=== PATIENT | female | born 1965 | race Caucasian/White ===

== ENCOUNTER 2019-06-11 08:42 | Day surgery (SDC) | payer BC, SELFPAY ==
[2019-06-10 11:17] VITALS: BMI 33.3
[2019-06-11 09:09] VITALS: BP 113/72; PULSE 90; RESP 18; TEMP 36.6; O2SAT 96
[2019-06-11] MEDS: sodium chloride 0.9% 1,000 ML 30 ML (09:11)
--- NOTE | 2019-06-11 09:59 | ANES.PREANE2 ---
Pre-Anesthetic Assessment Pre-Anesthetic Assessment: Height/Weight: Height 1.65 m Weight 90.718 kg Temp Pulse Resp BP Pulse Ox 97.9 F 90 18 113/72 96 06/11/19 09:09 06/11/19 09:09 06/11/19 09:09 06/11/19 09:09 06/11/19 09:09 Preop Diagnosis: Abd pain Proposed Procedure: Operation Date: 06/11/19 10:30 Proposed Procedures p EGD 82943 K21.9(Not Applicable) - Darshan Cardoso MD Was Beta Shivam taken within 24 hours: N/A Last intake: Intake Last Liquid Date 06/10/19 Last Liquid Time 22:00 Last Solid Date 06/10/19 Last Solid Time 20:00 Last Intake: 20:00 Social: Social History: No alcohol and No tobacco Exam: Pre-Anes Outpt Exam: alert, oriented x 3, clear to auscultation bilaterally and regular rate & rhythm Airway: Submandibular: WNL Cervical ROM: WNL MP: 1 Pulmonary: Pulmonary: None reported CV/HEM: CV/HEM: None reported : : None reported Hepatic: Hepatic: None reported GI: GI: GERD Metabolic: Metabolic: None reported Musc/skel: Musc/skel: Lower Back Pain and OA/DJD Neuropsych: Neuropsych: None reported Anesthetic Plan: ASA status: 2 Anesthesia: Anesthesia Evaluation and MAC Risk of > 500 ml blood loss (7ml/kg in children): No PFSH Anesthesia PFSH: Social History Smoking and tobacco status: never smoked Alcohol intake: never Lives independently: Yes Household members: spouse and family Marital status: Current occupational status: employed History of recent travel: No Data Anesthesia Cardiac Studies: No Data to Display
[2019-06-11 10:57] VITALS: BP 133/77; PULSE 89; RESP 16; TEMP 36.5; O2SAT 94
[2019-06-11 11:04] VITALS: BP 121/72; PULSE 85; RESP 18; O2SAT 92
--- NOTE | 2019-06-11 11:42 | ANE.PACU2 ---
 Inpatient post-anesthesia follow up: Airway intact: Yes Vital signs: Temperature 97.7 F Pulse Rate 85 Respiratory Rate 18 Blood Pressure 121/72 Pulse Oximetry 92 Oxygen Delivery Me thod Room Air Oxygen Flow Rate 3 Fraction of Inspir ed Oxygen Hydration adequate: Yes Nausea and vomiting: No Pain level: 1 Mental status: Baseline
--- NOTE | 2019-06-11 14:28 | PM.HPUD ---
H&P update H&P Update: DATE OF SURGERY/PROCEDURE: 06/11/19 DATE H&P PERFORMED: 05/25/19 H&P UPDATE INFORMATION: H&P completed within last 30 days and No changes to prior documentation PREOP DIAGNOSIS: Abd pain PLANNED PROCEDURE: Operation Date: 06/11/19 10:30 Proposed Procedures p EGD 78673 K21.9(Not Applicable) - Darshan Cardoso MD Full H&P Perinent History: Medical/Surgical History: Medical History (Updated 05/26/19 @ 09:39 by Darshan Cardoso MD) Constipation (Chronic) Diverticulosis (Acute) Fibromyalgia (Acute) Gastritis (Chronic) Idiopathic peripheral neuropathy (Acute) Internal hemorrhoids (Acute) Stress incontinence (Acute) Vertiginous migraine (Acute) Vitamin D deficiency (Acute) Family History: Family History (Updated 05/25/19 @ 13:23 by Emily Lowry LPN) Mother Cancer Pagets disease, breast Son Bleeding disorder Denies family history of Anesthesia complication Social History: Social History Smoking and tobacco status: never smoked Alcohol intake: never Lives independently: Yes Household members: spouse and family Marital status: Current occupational status: employed History of recent travel: No
== END 2019-06-11 11:17 | disposition home or self-care (01) ==
PROVIDERS: Family Provider Physician Assistant Medical; PCP Physician Assistant Medical; Visit Provider Surgery
PROC: 0DJ08ZZ Inspection of Upper Intestinal Tract, Via Natural or Artificial Opening Endoscopic (ICD-10-PCS; CPT 43235; principal; 2019-06-11 10:30)
DX: R10.9 Unspecified abdominal pain (principal); M79.7 Fibromyalgia; K21.9 Gastro-esophageal reflux disease without esophagitis; K29.70 Gastritis, unspecified, without bleeding; M19.90 Unspecified osteoarthritis, unspecified site; K59.00 Constipation, unspecified
CPT/HCPCS: 12345; 43239; 88305; J2704; J7030

== ENCOUNTER → 2019-10-05 13:11 | Outpatient (BNVA) | payer BC, SELFPAY | PROVIDERS: Family Provider Physician Assistant Medical; PCP Physician Assistant Medical; Referring Provider Physician Assistant Medical; Visit Provider Podiatrist Foot & Ankle Surgery | DX: M79.671 Pain in right foot (principal); M79.672 Pain in left foot | CPT/HCPCS: 73630 ==

== ENCOUNTER 2019-11-11 07:02 | Outpatient (CLI) | payer BC, SELFPAY ==
--- NOTE | 2019-11-11 07:12 | MM_ITS ---
WS: [id number] BILATERAL DIGITAL SCREENING MAMMOGRAPHY WITH CAD CLINICAL INFORMATION: SCREENING HISTORY: Screening mammogram. No current complaints. COMPARISON: September 17, 2018 TECHNIQUE: Bilateral CC and MLO views. FINDINGS: Scattered fibroglandular densities bilaterally. No suspicious focal mass, asymmetry, calcifications, or architectural distortion. No evidence of malignancy. MM/[place] [id number] IMPRESSION: BI-RADS: 1-Negative FOLLOW UP: 1 Year Follow-up Recommend return to annual screening mammography.
== END 2019-11-11 07:03 | disposition home or self-care (01) ==
LOC: RADSHAW 07:04
PROVIDERS: PCP Physician Assistant Medical; Visit Provider Physician Assistant Medical
DX: Z12.31 Encounter for screening mammogram for malignant neoplasm of breast (principal)
CPT/HCPCS: 77067

== ENCOUNTER → 2020-10-20 08:48 | Outpatient (BNVA) | payer OTHER, SELFPAY | PROVIDERS: PCP Physician Assistant Medical; Visit Provider Surgery | DX: K92.1 Melena (principal); Z20.822 Contact with and (suspected) exposure to COVID-19 | CPT/HCPCS: 87635 ==

== ENCOUNTER 2020-10-27 10:58 | Day surgery (SDC) | payer OTHER, SELFPAY ==
--- NOTE | 2020-10-27 11:03 | P.ANESASSM_ITS ---
Pre-Anesthetic Assessment Pre-Anesthetic Assessment: Height/Weight: Height 1.63 m Weight 99.79 kg Preop Diagnosis: Abd pain Proposed Procedure: Operation Date: 10/27/20 13:00 Proposed Procedures p Colonoscopy 27902 K92.1(Not Applicable) - Darshan Cardoso MD Familial anesthetic complications: None Last intake: > 8 hrs Social: Social History: No alcohol and No tobacco Exam: Pre-Anes Outpt Exam: alert, oriented x 3, clear to auscultation bilaterally and regular rate & rhythm Airway: Cervical ROM: WNL MP: 2 Dentition: Full Musc/skel: Comments: fibroids Neuropsych: Neuropsych: Neuropathy Anesthetic Plan: ASA status: 2 Anesthesia: MAC Risk of > 500 ml blood loss (7ml/kg in children): No PFSH Anesthesia PFSH: Medical History Constipation Diverticulosis Fibromyalgia Gastritis Idiopathic peripheral neuropathy Internal hemorrhoids No pertinent past medical history neghx: dm,htn,thyroid,dvt/pe Stress incontinence Vertiginous migraine Vitamin D deficiency Surgical History H/O carpal tunnel repair (~01/2020) Right H/O esophagogastroduodenoscopy 06/11/2019: gastritis and bile reflux History of appendectomy (2005) History of cholecystectomy (11/26/18) History of colonoscopy (10/11/15) Repeat in 10 years 10/2015 History of foot surgery (2016) Left History of hysterectomy (1996) LAVH- ovaries spared; performed in [place] for prolapse and pain History of lumbar fusion (2017) Family History Mother Breast cancer dx'd at age 6262 years old--Paget's disease Son Bleeding disorder Denies family history of Colon cancer Ovarian cancer Dementia Heart disease Hyperlipidemia Anesthesia complication Family history of thyroid problem Hypertension Uterine cancer Stroke Social History History of recent travel: No Additional social history: - Tobacco use: Denies Alcohol use: Denies Drug use: Denies Data Anesthesia Cardiac Studies: No Data to Display
[2020-10-27 11:32] VITALS: BP 107/80; PULSE 85; RESP 18; TEMP 36.5; O2SAT 95
[2020-10-27] MEDS: sodium chloride 0.9% 1,000 ML 30 ML IV (11:42)
--- NOTE | 2020-10-27 14:13 | W.PM.OPSUD ---
Surgery/Procedure H&P Update DATE OF PROCEDURE: October 27, 2020 DATE H&P PERFORMED: 09/30/20 H&P UPDATE INFORMATION: I have reviewed H&P completed within last 30 days, I have examined patient prior to procedure and No changes to prior documentation PREOP DIAGNOSIS: diagnostic PLANNED PROCEDURE: Operation Date: 10/27/20 13:00 Proposed Procedures p Colonoscopy 31949 K92.1(Not Applicable) - Darshan Cardoso MD
--- NOTE | 2020-10-27 14:47 | ANE.PACU2 ---
Inpatient post-anesthesia follow up: Airway intact: Yes Vital signs: Temperature 97.7 F Pulse Rate 85 Respiratory Rate 18 Blood Pressure 107/80 Pulse Oximetry 95 Oxygen Delivery Me thod Room Air Oxygen Flow Rate Fraction of Inspir ed Oxygen Hydration adequate: Yes Nausea and vomiting: No Pain level: 2 Mental status: Baseline
[2020-10-27 14:55] VITALS: BP 103/66; PULSE 83; RESP 16; TEMP 36.1; O2SAT 99
[2020-10-27 15:10] VITALS: BP 103/80; PULSE 76; RESP 18; TEMP 36.6; O2SAT 100
== END 2020-10-27 15:30 | disposition home or self-care (01) ==
PROVIDERS: PCP Physician Assistant Medical; Visit Provider Surgery
PROC: 0DJD8ZZ Inspection of Lower Intestinal Tract, Via Natural or Artificial Opening Endoscopic (ICD-10-PCS; CPT 45378; principal; 2020-10-27 13:00)
DX: K92.1 Melena (principal); K64.8 Other hemorrhoids; M79.7 Fibromyalgia; Z80.3 Family history of malignant neoplasm of breast
CPT/HCPCS: 45380; 88305; 96360; 96361; J2704; J7030

== ENCOUNTER 2020-11-11 07:59 | Outpatient (CLI) | payer OTHER, SELFPAY ==
--- NOTE | 2020-11-11 08:06 | MM_ITS ---
WS: [id number] BILATERAL DIGITAL SCREENING MAMMOGRAPHY WITH CAD CLINICAL INFORMATION: SCREENING HISTORY: Screening mammogram. No current complaints. COMPARISON: November 11, 2019 TECHNIQUE: Bilateral CC and MLO views. FINDINGS: Scattered fibroglandular densities bilaterally. 5 mm asymmetric density mid depth left breast best se en on the MLO view. This appears more prominent compared to previous. Recommend left diagnostic mammo graphy and ultrasound if persistent for further evaluation. Right breast is unremarkable and unchanged. MM/[place] [id number] IMPRESSION: BI-RADS: 0-Incomplete: Need additional imaging evaluation FOLLOW UP: Need Additional Imaging Recommend left diagnostic mammography and ultrasound if persistent for further evaluation.
== END 2020-11-11 08:00 | disposition home or self-care (01) ==
LOC: RADSHAW 08:05
PROVIDERS: PCP Physician Assistant Medical; Visit Provider Physician Assistant Medical
DX: Z12.31 Encounter for screening mammogram for malignant neoplasm of breast (principal)
CPT/HCPCS: 77067

== ENCOUNTER 2020-11-25 09:03 | Outpatient (CLI) | payer OTHER, SELFPAY ==
--- NOTE | 2020-11-25 09:08 | MM_ITS ---
WS: [id number] Right breast diagnostic mammogram, 11/25/2020 Clinical Data: ABNORMALITY OF BREAST ON SCREENING MAMMOGRAM Comparison: 11/11/2020, 11/11/2019, 09/17/2018, 09/16/2017, 08/07/2016, 08/02/2015, 09/07/2014, 08/31/2013, 2012, 08/29/2012, 06/08/2011, 08/02/2009. Findings: The asymmetry in the left breast is seen on the MLO, CC and ML views. The density measures 8 cm poste rior to the nipple. Review of the prior examinations shows that this density has changed little. Ther e are no spiculated masses or calcifications associated with this density. MM/[place] [id number] Impression: 1. Asymmetric left breast tissue. 2. Recommend left breast ultrasound. BIRADS: 2-Benign FOLLOW UP: See Report The CAD [employer] was used.
--- NOTE | 2020-11-25 09:08 | US_ITS ---
WS: [id number] Left breast ultrasound, 11/25/2020 Clinical Data: ABNORMALITY OF BREAST ON SCREENING MAMMOGRAM Comparison: Left breast ultrasound, 03/18/2013. Findings: The left breast tissue with scant posterior to the nipple and also the upper inner quadrant. Only nor mal breast tissue could be seen. There are no cysts or masses. US/US breast LT limited* [id number] Impression: Normal left breast ultrasound. Return to annual screening mammograms. BIRADS: 2-Benign FOLLOW UP: 1 Year Follow-up
== END 2020-11-25 09:04 | disposition home or self-care (01) ==
LOC: RADSHAW 09:05
PROVIDERS: PCP Physician Assistant Medical; Visit Provider Physician Assistant Medical
DX: R92.8 Other abnormal and inconclusive findings on diagnostic imaging of breast (principal); N64.89 Other specified disorders of breast
CPT/HCPCS: 76642; 77065

== ENCOUNTER → 2020-12-27 08:32 | Outpatient (BNVA) | payer OTHER, SELFPAY | PROVIDERS: PCP Physician Assistant Medical; Visit Provider Internal Medicine Rheumatology | DX: M79.7 Fibromyalgia; R76.8 Other specified abnormal immunological findings in serum; Z79.899 Other long term (current) drug therapy; M15.9 Polyosteoarthritis, unspecified | CPT/HCPCS: 99204 ==

== ENCOUNTER 2020-12-27 10:07 | Outpatient (CLI) | payer OTHER, SELFPAY ==
[2020-12-27 11:05] LABS: Alanine Aminotransferase 22 U/L (0-33); Albumin Level 4.4 g/dL (3.5-5.2); Alkaline Phosphatase 92 IU/L (35-105); Aspartate Amino Transferase 25 U/L (0-32); Globulin 2.1 g/dL (1.3-4.6); Glomerular Filtration Rate 103.8 mL/min (90-130); Total Bilirubin 0.2 mg/dL (0.15-1.2); Total Protein 6.5 g/dL (6.6-8.7)
[2020-12-27 11:20] LABS: Basophils # 0.1 10^3/uL (0.0-0.1); Basophils % 0.7 %; Eosinophils # 0.2 10^3/uL (0.0-0.8); Eosinophils % 2.7 %; Hematocrit 42.4 % (37.0-47.0); Hemoglobin 13.9 g/dL (11.5-15.3); Lymphocytes # 2.3 10^3/uL (0.8-4.8); Lymphocytes % 25.6 %; Mean Corpuscular HGB Conc 32.8 g/dL (30.0-36.0); Mean Corpuscular Hemoglobin 29.4 pg (28.0-34.0); Mean Corpuscular Volume 89.6 fl (81-99); Monocytes # 0.7 10^3/uL (0.2-0.9); Monocytes % 7.6 %; Neutrophils # 5.65 10^3/uL (1.8-7.7); Neutrophils % 63.1 %; Nucleated Red Blood Cells % 0 %; Platelet Count 224 10^3/cmm (130-400); Red Blood Count 4.73 10^6/uL (4.1-5.3); Red Cell Distribution Width 13.4 % (12.1-15.1)
[2020-12-27 11:32] LABS: Erythrocyte Sedimentation Rate 16 mm/hr (0-15)
[2020-12-27 13:23] LABS: 25 Hydroxy Vitamin D 37 ng/mL (30-100)
[2020-12-28 13:02] LABS: COMPLEMENT COMPONENT C3C 126 mg/dL (83-193); COMPLEMENT COMPONENT C4C 36 mg/dL (15-57)
[2020-12-28 14:13] LABS: Cyclic Citrullinated Peptide <16 UNITS
[2020-12-28 15:36] LABS: COMPLEMENT, TOTAL (CH50) >60 U/mL (31-60)
[2020-12-28 17:23] LABS: CENTROMERE B ANTIBODY <1.0 NEG AI (<1.0 NEG); JO-1 ANTIBODY <1.0 NEG AI (<1.0 NEG); RNP ANTIBODY <1.0 NEG AI (<1.0 NEG); SCL-70 ANTIBODY <1.0 NEG AI (<1.0 NEG); SJOGREN'S ANTIBODY (SS-A) <1.0 NEG AI (<1.0 NEG); SM ANTIBODY <1.0 NEG AI (<1.0 NEG); SS-B <1.0 NEG AI (<1.0 NEG); THYROID PEROXIDASE ANTIBODIES <1 IU/mL (<9); Thyroglobulin AB <1 IU/mL (< or = 1)
[2020-12-29 11:16] LABS: ANA PATTERN Nuclear, Homogeneous; ANA SCREEN, IFA POSITIVE (NEGATIVE)
[2021-01-05 12:38] LABS: DNA AB (DS) CRITHIDIA,IFA NEGATIVE (NEGATIVE)
== END 2020-12-27 10:08 | disposition home or self-care (01) ==
PROVIDERS: PCP Physician Assistant Medical; Visit Provider Internal Medicine Rheumatology
DX: M19.90 Unspecified osteoarthritis, unspecified site (principal); M25.50 Pain in unspecified joint; Z79.899 Other long term (current) drug therapy; R76.8 Other specified abnormal immunological findings in serum
CPT/HCPCS: 36415; 80076; 82306; 82565; 85025; 85651; 86160; 86162; 86235; 86255; 86376; 86431; 86800

== ENCOUNTER → 2021-01-30 10:46 | Outpatient (BNVA) | payer OTHER, SELFPAY | PROVIDERS: PCP Physician Assistant Medical; Visit Provider Obstetrics & Gynecology | DX: R31.9 Hematuria, unspecified (principal); R35.0 Frequency of micturition | CPT/HCPCS: 81000; 87077; 87086; 87184 ==

== ENCOUNTER → 2021-06-27 12:52 | Outpatient (BNVA) | payer OTHER, SELFPAY | PROVIDERS: PCP Physician Assistant Medical; Visit Provider Podiatrist Foot & Ankle Surgery | DX: M79.671 Pain in right foot (principal); M79.672 Pain in left foot; M77.8 Other enthesopathies, not elsewhere classified | CPT/HCPCS: 73630 ==

== ENCOUNTER 2021-07-10 10:25 | Outpatient (CLI) | payer OTHER, SELFPAY ==
--- NOTE | 2021-07-10 10:42 | XRR_ITS ---
PROCEDURE INFORMATION: Exam: XR Lumbosacral Spine Exam date and time: 07/10/2021 10:42 AM Age: 56 years old Clinical indication: Low back pain. Osteoarthritis. TECHNIQUE: Imaging protocol: XR of the lumbosacral spine. Views: 2 or 3 views. COMPARISON: [place] [id number] 11/25/2020 9:16 AM FINDINGS: Bones/joints: There are 5 lumbar type vertebral bodies. Grade 1 anterolisthesis of L3 likely related to facet joint degeneration. Mild to moderate degenerative disc disease is seen in the visualized thoracolumbar spine. No acute appearing fracture is identified. Mild leftward curvature of the lumbar spine. The sacroiliac joints are grossly symmetric. The sacrum is partially obscured by overlying bowel gas/stool. Soft tissues: No gross soft tissue swelling. XR/XR lumbar spine 2-3V* [id number] IMPRESSION: 1. No acute appearing fracture is identified. 2. Grade 1 anterolisthesis of L3 likely related to facet joint degeneration. 3. Mild to moderate degenerative disc disease is seen in the visualized thoracolumbar spine. 4. Consider MRI to further assess if clinically warranted.
--- NOTE | 2021-07-10 10:42 | XRR_ITS ---
PROCEDURE INFORMATION: Exam: XR Chest Exam date and time: 07/10/2021 10:42 AM Age: 56 years old Clinical indication: Pain. Osteoarthritis. Joint pain. TECHNIQUE: Imaging protocol: XR of the chest. Views: 2 views. COMPARISON: MRI Cervical Spine w/wo [id number] 03/20/2019 3:06 PM FINDINGS: Lungs: Subsegmental atelectasis or scarring at the left base. No juanjose consolidation. Pleural spaces: No pleural effusion. No pneumothorax. Heart/Mediastinum: The cardiac silhouette is unremarkable. No gross evidence of pneumomediastinum. Diaphragm: Mild elevation of the right hemidiaphragm. Bones/joints: No gross fracture. XR/XR chest 2V* [id number] IMPRESSION: No acute cardiopulmonary abnormality identified.
== END 2021-07-10 10:26 | disposition home or self-care (01) ==
LOC: LAB 10:30
PROVIDERS: PCP Nurse Practitioner Family; Visit Provider Internal Medicine Rheumatology
DX: M51.35 Other intervertebral disc degeneration, thoracolumbar region (principal)
CPT/HCPCS: 71046; 72100; 80076; 82565; 85025; 86140

== ENCOUNTER 2021-10-16 08:09 | Emergency (ER) | payer OTHER, SELFPAY ==
[2021-10-16 08:23] VITALS: BP 123/81; PULSE 101; RESP 18; TEMP 36.3; O2SAT 96; BMI 38.2
--- NOTE | 2021-10-16 08:37 | CT_ITS ---
WS: [id number] CT ABDOMEN AND PELVIS NONCONTRAST HISTORY: Abdominal pain, LEFT lower quadrant pain for one day with nausea and diarrhea. TECHNIQUE: Imaging performed through the abdomen and pelvis. Coronal and sagittal reformats are submi tted. All CT scans at [facility] use at least one of these dose optimization techniques: auto mated exposure control; mA and/or kV adjustment per patient size (includes targeted exams where dose is matched to clinical indication); or iterative reconstruction. DLP: 1735.77 mGy.cm COMPARISON: None available. Lower thorax: Micronodules at the lung bases some of these are calcified and some are noncalcified. T hese nodules are less than 3 mm in diameter. Heart size is normal. No hiatal hernia. Liver: Normal size liver with low attenuation from hepatic steatosis. 6 mm low-attenuation nodule in the LEFT lobe. No bile duct dilatation. Gallbladder: Prior cholecystectomy. Pancreas: Normal size and attenuation. Normal pancreatic duct. No pancreatitis or mass. Spleen: Normal. Adrenal glands: Normal RIGHT adrenal gland. Well-circumscribed low-attenuation adenoma measuring 2.2 x 1.4 cm LEFT adrenal gland. Right kidney: Normal size kidney. Low-attenuation nodule in the lower pole measures 11 mm. No obstruc tion. Left kidney: Normal size kidney. There is a large low-attenuation mass with a few scattered foci of c alcification in the wall of the lower pole measuring 66 x 54 mm. No obstruction. Aorta: Normal abdominal aorta, no aneurysm or atherosclerosis. No free fluid, intraperitoneal air or significant lymphadenopathy. GI tract: Nondistended stomach. No small bowel obstruction. Mild diffuse fecal retention and constipa tion. The appendix has been removed. Beginning within the distal colon through the sigmoid there is m oderate pericolonic inflammation and numerous diverticula consistent with diverticulitis. No abscess. Abdominal wall: Negative. No hernia. Pelvis: Prior hysterectomy. No free fluid or mass. Nondistended urinary bladder. Osseous structures: Thoracolumbar scoliosis. L3 anterolisthesis by 4 mm. Moderate facet joint arthrit is throughout the mid and lower lumbar spine. CT/CT abdomen pelvis wo con [id number] IMPRESSION: 1. Mild to moderate acute distal descending and sigmoid diverticulitis. No abs cess or free fluid. 2. Prior appendectomy and cholecystectomy. 3. Hepatic steatosis. 4. Indeterminate bilateral cystic masses within each kidney. These can be furt her evaluated by follow-up, nonemergent renal ultrasound. 5. Benign LEFT adrenal adenoma.
[2021-10-16 08:47] VITALS: RESP 18; O2SAT 96
[2021-10-16] MEDS: morphine 4 mg/mL SDV 1 mL IVP (08:47)
[2021-10-16] MEDS: ondansetron 2 mg/ML SDV 2 mL 4 MG IVP (08:47)
[2021-10-16] MEDS: sodium chloride 0.9% 1,000 ML 999 ML IV (08:48)
[2021-10-16 08:53] LABS: Basophils # 0.1 10^3/uL (0.0-0.1); Basophils % 0.7 %; Eosinophils # 0.2 10^3/uL (0.0-0.8); Eosinophils % 1.7 %; Hemoglobin 14.8 g/dL (11.5-15.3); Lymphocytes # 1.6 10^3/uL (0.8-4.8); Lymphocytes % 13.8 %; Mean Corpuscular HGB Conc 34.4 g/dL (30.0-36.0); Mean Corpuscular Hemoglobin 29.8 pg (28.0-34.0); Mean Corpuscular Volume 86.7 fl (81-99); Mean Platelet Volume 8.5 fL (7.4-10.4); Monocytes # 0.9 10^3/uL (0.2-0.9); Monocytes % 7.7 %; Neutrophils # 8.72 10^3/uL (1.8-7.7); Neutrophils % 75.8 %; Nucleated Red Blood Cells % 0 %; Platelet Count 219 10^3/cmm (130-400); Red Blood Count 4.96 10^6/uL (4.1-5.3); Red Cell Distribution Width 13.7 % (12.1-15.1); White Blood Count 11.5 10^3/uL (4.0-10.0)
[2021-10-16 09:06] LABS: Add Urine Microscopic? YES; Bilirubin Urine Neg (Negative); Blood Urine 2+ (Negative); Glucose Urine UA Norm (Normal); Ketones Urine 2+ (Negative); Leukocyte Esterase Urine Negative (Negative); Nitrate Urine Negative (Negative); Protein Urine Neg (Negative); RBC Urine 0-4 /hpf (0-2); Urine Appearance Clear (CLEAR); Urine Color Yellow (Yellow); Urobilinogen Urine Norm (Negative); pH Urine 5 (5-7)
[2021-10-16 09:07] LABS: Add Urine Culture? No
[2021-10-16 09:11] LABS: Alanine Aminotransferase 19 U/L (0-33); Albumin Level 4.4 g/dL (3.5-5.2); Alkaline Phosphatase 89 IU/L (35-105); Anion Gap 16.3 (5-19); Aspartate Amino Transferase 24 U/L (0-32); Blood Urea Nitrogen 14 mg/dL (6-20); Calcium 8.9 mg/dL (8.5-10.5); Carbon Dioxide 22 mmol/L (22-29); Chloride 103 mmol/L (98-107); Glomerular Filtration Rate 103.4 mL/min (90-130); Glucose 84 mg/dL (65-115); Lipase 22 U/L (13-60); Osmolality Calculated 284 mOsm/kg (285-295); Potassium 4.3 mmol/L (3.5-5.1); Sodium 137 mmol/L (136-145); Total Bilirubin 0.7 mg/dL (0.15-1.2); Total Protein 7.4 g/dL (6.6-8.7)
[2021-10-16 09:56] VITALS: BP 106/70; PULSE 96; RESP 18; O2SAT 96
--- NOTE | 2021-10-16 14:47 | W.ED.ABDPA2 ---
HPI - Abdominal Pain General: Chief Complaint: Abdominal Pain Stated Complaint: Lower Right side abd Pain Time Seen by Provider: 10/16/21 08:10 Source: patient Mode of arrival: ambulatory Limitations: no limitations History of Present Illness: 56-year-old female who presents emergency room complaining left lower quadrant abdominal pain. Multiple loose stools with no hematochezia. Has difficult time with urination as well but is able to completely empty the bladder has been very nauseous but no vomiting. Low-grade subjective fever. Has previous had a colonoscopy and had polyps removed several years ago. No history of diverticulitis. MD elicited complaint: abdominal pain Onset (ago): day(s) (1) Pain Consistency: intermittent Location: LLQ Severity: moderate Quality: cramping Radiation: none Migration to: no migration Exacerbating factors: nothing Relieving factors: nothing Associated Symptoms: Reports bloating, change in bowel habits, change in stool character, GI cramping, diarrhea, nausea and poor appetite; Denies anorexia, belching, chills, coffee ground emesis, constipation, dyspepsia, dysuria, excessive flatus, fever(s), heartburn, hematochezia, hematuria, hematemesis, fecal incontinence, loose stools, melena, syncope and vomiting Review of Systems Const: Denies: fever(s) or chills ENMT: Denies: throat pain, ear or mastoid pain, nasal discharge or nasal congestion Card: Denies: chest pain, palpitations or syncope Resp: Denies: dyspnea, productive cough or non-productive cough GI: Reports: abdominal pain, nausea, diarrhea, bloating, GI cramping, change in bowel habits and change in stool character; Denies: vomiting, hematemesis, coffee ground emesis, heartburn, constipation, belching, excessive flatus, fecal incontinence, hematochezia or melena : Denies: flank pain, difficulty voiding, dysuria, urinary frequency, urinary urgency or hematuria Skin/Breast: Denies: rash or pruritus PFSH ED PFSH: Medical History Constipation Diverticulosis Fibromyalgia Gastritis Idiopathic peripheral neuropathy Inflammatory arthritis Internal hemorrhoids Osteoarthritis, generalized Positive JOSI (antinuclear antibody) Stress incontinence Vertiginous migraine Vitamin D deficiency Surgical History H/O carpal tunnel repair (~01/2020) Right H/O esophagogastroduodenoscopy 06/11/2019: gastritis and bile reflux History of appendectomy (2005) History of cholecystectomy (11/26/18) History of colonoscopy (10/27/20) 10/2015 History of foot surgery (2016) Left History of hysterectomy (1996) LAVH- ovaries spared; performed in [place] for prolapse and pain History of lumbar fusion (2017) Family History Mother Breast cancer dx'd at age 6262 years old--Paget's disease Son Bleeding disorder Denies family history of Rheumatoid arthritis Colon cancer Ovarian cancer Lupus Psoriatic arthritis Dementia Heart disease Hyperlipidemia Anesthesia complication Family history of thyroid problem Hypertension Uterine cancer Stroke Social History Smoking and tobacco status: never smoked History of recent travel: No Additional social history: - Tobacco use: Denies Alcohol use: Denies Drug use: Denies Physical Exam Const: COMMON NORMALS: no acute distress GENERAL APPEARANCE: cooperative and comfortable ORIENTATION/CONSCIOUSNESS: Yes awake, Yes oriented to person, Yes oriented to place and Yes oriented to time HENMT: COMMON NORMALS: normocephalic, atraumatic and hearing grossly normal bilaterally HEAD & SCALP: normocephalic and atraumatic Neck/C-Spine: COMMON NORMALS: no JVD Resp: COMMON NORMALS: normal respiratory effort, No retractions, No use of accessory muscles and clear to auscultation bilaterally AUSCULTATION: clear to auscultation bilaterally Cardio: COMMON NORMALS: no JVD, regular rate, regular rhythm and No murmurs present (Cardio) RATE: regular rate RHYTHM: regular rhythm GI: COMMON NORMALS: No hepatosplenomegaly present AUSCULTATION: Yes normoactive bowel sounds PALPATION: Yes Tenderness to palpation present (GI) Details: LLQ, No Guarding due to palpation present (GI) and Yes No hepatosplenomegaly present Extremity: COMMON NORMALS: normal to inspection, capillary refill normal, no clubbing, cyanosis or edema, no calf tenderness and no pedal edema Neuro: SENSORIUM/ORIENTATION: Yes oriented to person, Yes oriented to place and Yes oriented to time Skin: COMMON NORMALS: no rashes or lesions noted GENERAL SKIN EXAM: no rashes or lesions noted Course Vital Signs: Vital signs: Vital Signs Temperature 97.3 F L 10/16/21 08:23 Pulse Rate 96 10/16/21 09:56 Respiratory Rate 18 10/16/21 09:56 Blood Pressure 106/70 10/16/21 09:56 Pulse Oximetry 96 10/16/21 09:56 MDM - Abdominal Pain Medical Decision Making Labs and imaging reviewed. Patient has mild to moderate diverticulitis on CT start Cipro and Flagyl clinical diet 2 days then advance as tolerated follow-up with primary care. Medical Records I reviewed the patient's medical records. Lab Data I reviewed the patient's lab results. : 10/16/21 08:42 10/16/21 08:42 Labs/Radiology: Radiology Impressions Abdomen/Pelvis CT 10/16/21 08:37 IMPRESSION: 1. Mild to moderate acute distal descending and sigmoid diverticulitis. No abscess or free fluid. 2. Prior appendectomy and cholecystectomy. 3. Hepatic steatosis. 4. Indeterminate bilateral cystic masses within each kidney. These can be further evaluated by follow-up, nonemergent renal ultrasound. 5. Benign LEFT adrenal adenoma. Laboratory Results WBC 11.5 10^3/uL (4.0-10.0) H 10/16/21 08:42 RBC 4.96 10^6/uL (4.1-5.3) 10/16/21 08:42 Hgb 14.8 g/dL (11.5-15.3) 10/16/21 08:42 Hct 43.0 % (37.0-47.0) 10/16/21 08:42 MCV 86.7 fl (81-99) 10/16/21 08:42 MCH 29.8 pg (28.0-34.0) 10/16/21 08:42 MCHC 34.4 g/dL (30.0-36.0) 10/16/21 08:42 RDW 13.7 % (12.1-15.1) 10/16/21 08:42 Plt Count 219 10^3/cmm (130-400) 10/16/21 08:42 MPV 8.5 fL (7.4-10.4) 10/16/21 08:42 Neut % (Auto) 75.8 % 10/16/21 08:42 Lymph % (Auto) 13.8 % 10/16/21 08:42 [place] % (Auto) 7.7 % 10/16/21 08:42 Eos % (Auto) 1.7 % 10/16/21 08:42 Baso % (Auto) 0.7 % 10/16/21 08:42 Neut # (Auto) 8.72 10^3/uL (1.8-7.7) H 10/16/21 08:42 Lymph # (Auto) 1.6 10^3/uL (0.8-4.8) 10/16/21 08:42 [place] # (Auto) 0.9 10^3/uL (0.2-0.9) 10/16/21 08:42 Eos # (Auto) 0.2 10^3/uL (0.0-0.8) 10/16/21 08:42 Baso # (Auto) 0.1 10^3/uL (0.0-0.1) 10/16/21 08:42 Nucleated RBC % (auto) 0 % 10/16/21 08:42 Nucleated RBCs # 0.0 /100WBC 10/16/21 08:42 Sodium 137 mmol/L (136-145) 10/16/21 08:42 Potassium 4.3 mmol/L (3.5-5.1) 10/16/21 08:42 Chloride 103 mmol/L (98-107) 10/16/21 08:42 Carbon Dioxide 22 mmol/L (22-29) 10/16/21 08:42 Anion Gap 16.3 (5-19) 10/16/21 08:42 BUN 14 mg/dL (6-20) 10/16/21 08:42 Creatinine 0.6 mg/dL (0.5-0.9) 10/16/21 08:42 GFR Calculation 103.4 mL/min (90-130) 10/16/21 08:42 Glucose 84 mg/dL (65-115) 10/16/21 08:42 Calculated Osmolality 284 mOsm/kg (285-295) L 10/16/21 08:42 Calcium 8.9 mg/dL (8.5-10.5) 10/16/21 08:42 Total Bilirubin 0.7 mg/dL (0.15-1.2) 10/16/21 08:42 AST 24 U/L (0-32) 10/16/21 08:42 ALT 19 U/L (0-33) 10/16/21 08:42 Alkaline Phosphatase 89 IU/L (35-105) 10/16/21 08:42 Total Protein 7.4 g/dL (6.6-8.7) 10/16/21 08:42 Albumin 4.4 g/dL (3.5-5.2) 10/16/21 08:42 Globulin 3.0 g/dL (1.3-4.6) 10/16/21 08:42 Lipase 22 U/L (13-60) 10/16/21 08:42 Urine Color Yellow (Yellow) 10/16/21 08:30 Urine Appearance Clear (CLEAR) 10/16/21 08:30 Urine pH 5 (5-7) 10/16/21 08:30 Ur Specific [place] 1.020 (1.005-1.030) 10/16/21 08:30 Urine Protein Neg (Negative) 10/16/21 08:30 Urine Glucose (UA) Norm (Normal) 10/16/21 08:30 Urine Ketones 2+ (Negative) H 10/16/21 08:30 Urine Blood 2+ (Negative) H 10/16/21 08:30 Urine Nitrate Negative (Negative) 10/16/21 08:30 Urine Bilirubin Neg (Negative) 10/16/21 08:30 Urine Urobilinogen Norm mg/dL (Negative) 10/16/21 08:30 Ur Leukocyte Esterase Negative (Negative) 10/16/21 08:30 Urine RBC 0-4 /hpf (0-2) H 10/16/21 08:30 Urine WBC None /hpf (0-5) 10/16/21 08:30 Ur Squamous Epith Cells None /hpf (0-5) 10/16/21 08:30 Amorphous Sediment Not Reportable 10/16/21 08:30 Urine Bacteria None /hpf (NONE) 10/16/21 08:30 Discharge Plan Discharge Patient Disposition: Home Clinical Impression: Diverticulitis Condition: Stable Prescriptions: New hydrocodone-acetaminophen 5-325 mg tablet 1 tab PO Q6H PRN (Reason: pain) Qty: 15 0RF promethazine 25 mg tablet 25 mg PO Q6H PRN (Reason: nausea and vomiting) Qty: 20 0RF Cipro 500 mg tablet 500 mg PO BID Qty: 14 0RF Held hydroxychloroquine 200 mg tablet 200 mg PO BID Qty: 60 0RF Hold Instructions: Resume on 10/23/21. No Action acetaminophen 500 mg tablet 1,000 mg PO BID 0RF cyclobenzaprine 10 mg tablet 10 mg PO TID 0RF Metamucil 3.4 gram/5.4 gram powder 1 tbsp PO BID 30 Days Qty: 660 0RF Rx Instructions: mix into at least 8 oz of water or juice before administering topiramate [Topamax] 50 mg tablet 50 mg PO BID 0RF pregabalin [Lyrica] 150 mg capsule 150 mg PO TID 0RF Curcumin 95 % powder See Rx Instructions miscellaneous .COMPLEX 0RF Rx Instructions: 500, 2 daily ; multivitamin Capsule 1 cap PO DAILY 0RF duloxetine 60 mg capsule,delayed release(DR/EC) 90 mg PO DAILY 0RF sulfamethoxazole-trimethoprim [Bactrim DS] 800-160 mg tablet 1 tab PO BID 3 Days Qty: 6 0RF hydrocortisone 2.5 % cream with perineal applicator See Rx Instructions .ROUTE .COMPLEX Qty: 30 0RF Dose Instruction: APPLY RECTALLY TO THE AFFECTED AREA TWICE DAILY NEEDED FOR ITCHING Rx Instructions: APPLY RECTALLY TO THE AFFECTED AREA TWICE DAILY NEEDED FOR ITCHING celecoxib 200 mg capsule See Rx Instructions .ROUTE .COMPLEX Qty: 180 3RF Dose Instruction: TAKE 1 CAPSULE TWICE DAILY Rx Instructions: TAKE 1 CAPSULE TWICE DAILY diclofenac sodium 1 % gel 4 g topical QID 90 Days Qty: 100 2RF Rx Instructions: apply to affected areas hydroxychloroquine 200 mg tablet 200 mg PO BID Qty: 60 1RF prednisone 20 mg tablet See Rx Instructions PO .COMPLEX PRN (Reason: joint pain flare) Qty: 30 1RF Rx Instructions: take 1 tab daily for 5-7 days as needed for arthritis flare PO PRN; tramadol 50 mg tablet 50 mg PO BID PRN (Reason: moderate to severe pain) Qty: 60 0RF Linzess 72 mcg capsule 72 mcg PO DAILY Qty: 30 3RF amitriptyline 10 mg tablet 10 mg PO BID 0RF Discharge Orders: Discharge ED (Routine); Ordered 10/16/21 Ordered By: Rohit Rueda Referrals: Bradley Wyatt [Primary Care Provider] - Discharge Diet: Full LIquid Discharge Activity: Increase activity as tolerated Patient Instructions: Opioid Safety Activity Restrictions/Additional Instructions: Clear liquid diet for 24 to 48 hours then advance as tolerated follow-up with your doctor within the next 1 to 2 weeks. Coding Level of Care Code ED Rn Hedis for Leo Godwin
== END 2021-10-16 10:14 | disposition home or self-care (01) ==
PROVIDERS: Physician Assistant; Emergency Provider Family Medicine; PCP Nurse Practitioner Family
DX: K57.92 Diverticulitis of intestine, part unspecified, without perforation or abscess without bleeding (principal)
CPT/HCPCS: 74176; 80053; 81001; 83690; 85025; 96361; 96374; 96375; 99284; J2270; J2405; J7030

== ENCOUNTER 2021-12-06 08:15 | Outpatient (CLI) | payer MEDICARE, SELFPAY ==
--- NOTE | 2021-12-06 08:21 | MM_ITS ---
WS: [id number] BILATERAL SCREENING DIGITAL BREAST TOMOSYNTHESIS MAMMOGRAM WITH CAD HISTORY: SCREENING COMPARISON: 11/11/2020, 11/11/2019 Bilateral CC and MLO views with tomosynthesis and synthetic mammography submitted. Computer aided det ection analyzed. Breast composition: There are scattered areas of fibroglandular density. No suspicious masses, microc alcifications or architectural distortion. Asymmetries in the central LEFT breast are stable. No mass identified. MM/[place] [id number] IMPRESSION: BI-RADS: 2-Benign FOLLOW UP: 1 Year Follow-up
== END 2021-12-06 08:16 | disposition home or self-care (01) ==
PROVIDERS: PCP Nurse Practitioner Family; Visit Provider Nurse Practitioner Family
DX: Z12.31 Encounter for screening mammogram for malignant neoplasm of breast (principal)
CPT/HCPCS: 77063; 77067

== ENCOUNTER → 2022-02-28 08:49 | Outpatient (BNVA) | payer MEDICARE, SELFPAY | PROVIDERS: PCP Nurse Practitioner Family; Visit Provider Internal Medicine Rheumatology | DX: K64.8 Other hemorrhoids (principal); M15.9 Polyosteoarthritis, unspecified; Z79.899 Other long term (current) drug therapy; M79.7 Fibromyalgia; R76.8 Other specified abnormal immunological findings in serum | CPT/HCPCS: 99213; 99214 ==

== ENCOUNTER 2022-07-02 14:01 | Outpatient (CLI) | payer MEDICARE, SELFPAY | END 2022-07-02 14:02 | disposition home or self-care (01) | PROVIDERS: PCP Nurse Practitioner Family; Visit Provider Internal Medicine Rheumatology | DX: Z79.899 Other long term (current) drug therapy; R76.8 Other specified abnormal immunological findings in serum; M79.7 Fibromyalgia; M15.9 Polyosteoarthritis, unspecified | CPT/HCPCS: 99214 ==

== ENCOUNTER 2022-07-03 09:05 | Outpatient (CLI) | payer MEDICARE, SELFPAY ==
[2022-07-03 10:00] LABS: Alanine Aminotransferase 64 U/L (0-33); Albumin Level 4.4 g/dL (3.5-5.2); Alkaline Phosphatase 107 U/L (35-105); Aspartate Amino Transferase 47 U/L (0-32); Globulin 2.3 g/dL (1.3-4.6); Total Bilirubin 0.3 mg/dL (0.15-1.2); Total Protein 6.7 g/dL (6.6-8.7)
[2022-07-03 17:31] LABS: Basophils # 0.1 10^3/uL (0.0-0.1); Basophils % 1.1 %; Eosinophils # 0.3 10^3/uL (0.0-0.8); Eosinophils % 3.9 %; Hemoglobin 14.4 g/dL (11.5-15.3); Lymphocytes # 1.5 10^3/uL (0.8-4.8); Lymphocytes % 23.8 %; Mean Corpuscular Hemoglobin 28.9 pg (28.0-34.0); Mean Corpuscular Volume 90.2 fl (81-99); Mean Platelet Volume 9.5 fL (7.4-10.4); Monocytes # 0.5 10^3/uL (0.2-0.9); Monocytes % 8.2 %; Neutrophils # 4.03 10^3/uL (1.8-7.7); Neutrophils % 62.7 %; Nucleated Red Blood Cells % 0 %; Platelet Count 227 10^3/cmm (130-400); Red Blood Count 4.99 10^6/uL (4.1-5.3); Red Cell Distribution Width 13.8 % (12.1-15.1); White Blood Count 6.4 10^3/uL (4.0-10.0)
[2022-07-03 17:46] LABS: Estmated Average Glucose 97
[2022-07-03 17:57] LABS: Free T4 Free Thyroxine 0.91 ng/dL (0.82-1.77); Thyroid Stimulating Hormone 1.39 uIU/mL (0.27-4.20)
[2022-07-03 18:29] LABS: Follicle Stimulating Hormone 47.3 mIU/mL
== END 2022-07-03 09:06 | disposition home or self-care (01) ==
LOC: LAB 09:08
PROVIDERS: Nurse Practitioner Women's Health; PCP Nurse Practitioner Family; Visit Provider Internal Medicine Rheumatology
DX: Z01.419 Encounter for gynecological examination (general) (routine) without abnormal findings (principal); M19.90 Unspecified osteoarthritis, unspecified site; Z79.899 Other long term (current) drug therapy
CPT/HCPCS: 36415; 80076; 82565; 82670; 83001; 83002; 83036; 84439; 84443; 85025; 86140

== ENCOUNTER → 2022-07-09 12:50 | Outpatient (BNVA) | payer MEDICARE, SELFPAY | PROVIDERS: PCP Nurse Practitioner Family; Visit Provider Podiatrist Foot & Ankle Surgery | DX: M76.822 Posterior tibial tendinitis, left leg (principal); M20.42 Other hammer toe(s) (acquired), left foot; L84 Corns and callosities; M20.41 Other hammer toe(s) (acquired), right foot | CPT/HCPCS: 99213 ==

== ENCOUNTER → 2022-07-18 10:24 | Outpatient (BNVA) | payer MEDICARE, SELFPAY | PROVIDERS: PCP Nurse Practitioner Family; Visit Provider Nurse Practitioner Women's Health | DX: R63.4 Abnormal weight loss (principal) | CPT/HCPCS: 82947; 83036 ==

== ENCOUNTER 2022-08-01 07:45 | Outpatient (CLI) | payer MEDICARE, SELFPAY ==
[2022-08-01 08:16] LABS: Basophils # 0.1 10^3/uL (0.0-0.1); Basophils % 0.8 %; Eosinophils # 0.2 10^3/uL (0.0-0.8); Eosinophils % 2.8 %; Hematocrit 41.2 % (37.0-47.0); Hemoglobin 13.4 g/dL (11.5-15.3); Lymphocytes # 1.5 10^3/uL (0.8-4.8); Lymphocytes % 25.1 %; Mean Corpuscular HGB Conc 32.5 g/dL (30.0-36.0); Mean Corpuscular Hemoglobin 28.8 pg (28.0-34.0); Mean Corpuscular Volume 88.4 fl (81-99); Mean Platelet Volume 8.8 fL (7.4-10.4); Monocytes # 0.6 10^3/uL (0.2-0.9); Monocytes % 9.1 %; Neutrophils # 3.75 10^3/uL (1.8-7.7); Nucleated Red Blood Cells % 0 %; Platelet Count 209 10^3/cmm (130-400); Red Blood Count 4.66 10^6/uL (4.1-5.3); Red Cell Distribution Width 13.2 % (12.1-15.1); White Blood Count 6.1 10^3/uL (4.0-10.0)
[2022-08-01 08:30] LABS: Alanine Aminotransferase 28 U/L (0-33); Albumin Level 4.1 g/dL (3.5-5.2); Alkaline Phosphatase 99 U/L (35-105); Aspartate Amino Transferase 28 U/L (0-32); Globulin 2.6 g/dL (1.3-4.6); Glomerular Filtration Rate 86.2 mL/min (90-130); Total Bilirubin 0.2 mg/dL (0.15-1.2); Total Protein 6.7 g/dL (6.6-8.7)
== END 2022-08-01 07:46 | disposition home or self-care (01) ==
PROVIDERS: PCP Nurse Practitioner Family; Visit Provider Internal Medicine Rheumatology
DX: R74.8 Abnormal levels of other serum enzymes (principal); Z79.899 Other long term (current) drug therapy
CPT/HCPCS: 80076; 82565; 83525; 85025

== ENCOUNTER → 2022-10-31 13:10 | Outpatient (BNVA) | payer MEDICARE, SELFPAY | PROVIDERS: PCP Nurse Practitioner Family; Visit Provider Internal Medicine Rheumatology | DX: R76.8 Other specified abnormal immunological findings in serum (principal); M19.90 Unspecified osteoarthritis, unspecified site; Z79.899 Other long term (current) drug therapy; M79.7 Fibromyalgia | CPT/HCPCS: 36415; 82310; 83735; 84100; 84132; 99214 ==

== ENCOUNTER 2022-11-30 09:40 | Outpatient (CLI) | payer MEDICARE, SELFPAY ==
[2022-11-30 10:16] LABS: Basophils # 0.1 10^3/uL (0.0-0.1); Basophils % 1.2 %; Eosinophils # 0.3 10^3/uL (0.0-0.8); Hematocrit 41.6 % (37.0-47.0); Hemoglobin 13.8 g/dL (11.5-15.3); Lymphocytes # 1.9 10^3/uL (0.8-4.8); Lymphocytes % 29.9 %; Mean Corpuscular HGB Conc 33.2 g/dL (30.0-36.0); Mean Corpuscular Hemoglobin 29.4 pg (28.0-34.0); Mean Corpuscular Volume 88.7 fl (81-99); Mean Platelet Volume 8.7 fL (7.4-10.4); Monocytes # 0.6 10^3/uL (0.2-0.9); Monocytes % 9.2 %; Neutrophils % 54.4 %; Nucleated Red Blood Cells % 0 %; Platelet Count 202 10^3/cmm (130-400); Red Blood Count 4.69 10^6/uL (4.1-5.3); Red Cell Distribution Width 13.4 % (12.1-15.1); White Blood Count 6.4 10^3/uL (4.0-10.0)
[2022-11-30 10:44] LABS: Alanine Aminotransferase 31 U/L (0-33); Albumin Level 4.3 g/dL (3.5-5.2); Alkaline Phosphatase 87 U/L (35-105); Aspartate Amino Transferase 32 U/L (0-32); Globulin 2.4 g/dL (1.3-4.6); Total Bilirubin 0.3 mg/dL (0.15-1.2); Total Protein 6.7 g/dL (6.6-8.7)
== END 2022-11-30 09:41 | disposition home or self-care (01) ==
LOC: LAB 09:45
PROVIDERS: PCP Nurse Practitioner Family; Visit Provider Internal Medicine Rheumatology
DX: M19.90 Unspecified osteoarthritis, unspecified site (principal); Z79.899 Other long term (current) drug therapy
CPT/HCPCS: 36415; 80076; 82565; 85025; 86140

== ENCOUNTER 2022-12-19 07:51 | Outpatient (CLI) | payer MEDICARE, SELFPAY ==
--- NOTE | 2022-12-19 | MM_ITS ---
WS: [id number] BILATERAL SCREENING DIGITAL TOMOSYNTHESIS MAMMOGRAM WITH CAD HISTORY: SCREENING COMPARISON: 12/06/2021, 09/17/2018 Bilateral CC and MLO views with tomosynthesis and synthetic mammography submitted. Computer aided det ection analyzed. Breast composition: There are scattered areas of fibroglandular density. No suspicious masses, microc alcifications or architectural distortion. IMPRESSION: MM/[place] [id number] BI-RADS: 2-Benign FOLLOW UP: 1 Year Follow-up
== END 2022-12-19 07:52 | disposition home or self-care (01) ==
LOC: RAD 07:55 → MOBLMAM 08:54
PROVIDERS: PCP Nurse Practitioner Family; Visit Provider Nurse Practitioner Family
DX: Z12.31 Encounter for screening mammogram for malignant neoplasm of breast (principal)
CPT/HCPCS: 77063; 77067

== ENCOUNTER → 2023-01-30 12:58 | Outpatient (BNVA) | payer MEDICARE, SELFPAY | PROVIDERS: PCP Nurse Practitioner Family; Visit Provider Internal Medicine Rheumatology | DX: R76.8 Other specified abnormal immunological findings in serum (principal); Z79.899 Other long term (current) drug therapy; M79.7 Fibromyalgia; M15.9 Polyosteoarthritis, unspecified; M06.041 Rheumatoid arthritis without rheumatoid factor, right hand; M06.042 Rheumatoid arthritis without rheumatoid factor, left hand | CPT/HCPCS: 99214 ==

== ENCOUNTER 2023-04-01 13:03 | Outpatient (CLI) | payer MEDICARE, SELFPAY ==
[2023-04-01 13:49] LABS: Basophils # 0.1 10^3/uL (0.0-0.1); Basophils % 1.6 %; Eosinophils # 0.4 10^3/uL (0.0-0.8); Eosinophils % 5.6 %; Hematocrit 41.3 % (36-47); Lymphocytes # 1.8 10^3/uL (0.8-4.8); Lymphocytes % 28.3 %; Mean Corpuscular Hemoglobin 29.5 pg (27-33); Mean Corpuscular Volume 92.2 fl (85-98); Mean Platelet Volume 8.9 fL (7.4-10.4); Monocytes # 0.5 10^3/uL (0.2-0.9); Monocytes % 7.2 %; Neutrophils # 3.65 10^3/uL (1.8-7.7); Neutrophils % 57.1 %; Nucleated Red Blood Cells % 0 %; Platelet Count 199 10^3/cmm (157-399); Red Blood Count 4.48 10^6/uL (3.85-5.65); Red Cell Distribution Width 13.4 % (12.1-15.1); White Blood Count 6.39 10^3/uL (3.29-11.43)
[2023-04-01 13:58] LABS: Alanine Aminotransferase 25 U/L (0-33); Albumin Level 4.2 g/dL (3.5-5.2); Alkaline Phosphatase 81 U/L (35-105); Aspartate Amino Transferase 27 U/L (0-32); Globulin 2.4 g/dL (1.3-4.6); Total Bilirubin 0.3 mg/dL (0.15-1.2); Total Protein 6.6 g/dL (6.6-8.7)
[2023-04-05 14:59] LABS: Mutated Citrullinated Vimentin <20 U/mL (<20)
== END 2023-04-01 13:04 | disposition home or self-care (01) ==
LOC: LAB 13:04
PROVIDERS: PCP Nurse Practitioner Family; Visit Provider Internal Medicine Rheumatology
DX: M19.90 Unspecified osteoarthritis, unspecified site (principal); Z79.899 Other long term (current) drug therapy; M76.822 Posterior tibial tendinitis, left leg; M20.42 Other hammer toe(s) (acquired), left foot; M20.41 Other hammer toe(s) (acquired), right foot; M79.672 Pain in left foot
CPT/HCPCS: 36415; 80076; 82565; 83520; 85025; 86140; 99213

== ENCOUNTER → 2023-05-29 12:45 | Outpatient (BNVA) | payer MEDICARE, SELFPAY | PROVIDERS: PCP Nurse Practitioner Family; Visit Provider Internal Medicine Rheumatology | DX: M06.041 Rheumatoid arthritis without rheumatoid factor, right hand (principal); M06.042 Rheumatoid arthritis without rheumatoid factor, left hand; Z79.899 Other long term (current) drug therapy; R76.8 Other specified abnormal immunological findings in serum; M79.7 Fibromyalgia; M15.9 Polyosteoarthritis, unspecified | CPT/HCPCS: 99214 ==

== ENCOUNTER 2023-07-04 09:27 | Outpatient (CLI) | payer MEDICARE, SELFPAY ==
[2023-07-04 10:22] LABS: Basophils # 0.1 10^3/uL (0.0-0.1); Basophils % 1.8 %; Eosinophils # 0.2 10^3/uL (0.0-0.8); Eosinophils % 3.6 %; Hematocrit 39.9 % (36-47); Lymphocytes # 1.7 10^3/uL (0.8-4.8); Lymphocytes % 31.1 %; Mean Corpuscular HGB Conc 32.8 g/dL (30-55); Mean Corpuscular Hemoglobin 29.4 pg (27-33); Mean Corpuscular Volume 89.7 fl (85-98); Monocytes # 0.5 10^3/uL (0.2-0.9); Monocytes % 8.1 %; Neutrophils # 3.07 10^3/uL (1.8-7.7); Neutrophils % 55.2 %; Nucleated Red Blood Cells % 0 %; Platelet Count 177 10^3/cmm (157-399); Red Blood Count 4.45 10^6/uL (3.85-5.65); Red Cell Distribution Width 13.2 % (12.1-15.1); White Blood Count 5.56 10^3/uL (3.29-11.43)
[2023-07-04 10:48] LABS: Alanine Aminotransferase 23 U/L (0-33); Albumin Level 4.2 g/dL (3.5-5.2); Alkaline Phosphatase 70 U/L (35-105); Aspartate Amino Transferase 30 U/L (0-32); Globulin 2.1 g/dL (1.3-4.6); Glomerular Filtration Rate 73.7 mL/min (90-130); Total Bilirubin 0.3 mg/dL (0.15-1.2); Total Protein 6.3 g/dL (6.6-8.7)
== END 2023-07-04 09:28 | disposition home or self-care (01) ==
LOC: LAB 09:27
PROVIDERS: PCP Nurse Practitioner Family; Visit Provider Internal Medicine Rheumatology
DX: M06.041 Rheumatoid arthritis without rheumatoid factor, right hand (principal); M06.042 Rheumatoid arthritis without rheumatoid factor, left hand; Z79.899 Other long term (current) drug therapy
CPT/HCPCS: 36415; 80076; 82565; 85025; 86140

== ENCOUNTER → 2023-10-10 12:30 | Outpatient (BNVA) | payer MEDICARE, SELFPAY | PROVIDERS: PCP Nurse Practitioner Family; Visit Provider Internal Medicine Rheumatology | DX: M06.041 Rheumatoid arthritis without rheumatoid factor, right hand (principal); M06.042 Rheumatoid arthritis without rheumatoid factor, left hand; R76.8 Other specified abnormal immunological findings in serum; M79.7 Fibromyalgia; M15.9 Polyosteoarthritis, unspecified | CPT/HCPCS: 36415; 80076; 82565; 85025; 86140; 99214 ==

== ENCOUNTER 2023-12-23 07:27 | Outpatient (CLI) | payer MEDICARE, SELFPAY ==
--- NOTE | 2023-12-23 07:32 | MM_ITS ---
WS: [id number] BILATERAL 3D TOMOSYNTHESIS DIGITAL SCREENING MAMMOGRAPHY WITH CAD CLINICAL INFORMATION: SCREENING HISTORY: Screening mammogram. No current complaints. COMPARISON: 2022 TECHNIQUE: Bilateral CC and MLO views. FINDINGS: Scattered fibroglandular densities bilaterally. No suspicious focal mass, asymmetry, calcifications, or architectural distortion. No evidence of malignancy. Stable asymmetric density upper outer RIGHT b reast. MM/[place] [id number] IMPRESSION: BI-RADS: 2-Benign FOLLOW UP: 1 Year Follow-up Recommend return to annual screening mammography.
== END 2023-12-23 07:28 | disposition home or self-care (01) ==
LOC: RAD 07:27
PROVIDERS: PCP Nurse Practitioner Family; Visit Provider Nurse Practitioner Family
DX: Z12.31 Encounter for screening mammogram for malignant neoplasm of breast (principal)
CPT/HCPCS: 77063; 77067

== ENCOUNTER → 2023-12-24 15:20 | Outpatient (BNVA) | payer MEDICARE, SELFPAY | PROVIDERS: PCP Nurse Practitioner Family; Visit Provider Nurse Practitioner Women's Health | DX: Z01.419 Encounter for gynecological examination (general) (routine) without abnormal findings (principal); R53.83 Other fatigue; M79.7 Fibromyalgia; E66.9 Obesity, unspecified | CPT/HCPCS: 82306; 82465; 82607; 83718; 83721; 84315; 84439; 84443; 84481; 85025 ==

== ENCOUNTER → 2024-02-13 12:46 | Outpatient (BNVA) | payer MEDICARE, SELFPAY | PROVIDERS: PCP Nurse Practitioner Family; Visit Provider Internal Medicine Rheumatology | DX: M06.041 Rheumatoid arthritis without rheumatoid factor, right hand (principal); M06.042 Rheumatoid arthritis without rheumatoid factor, left hand; M79.7 Fibromyalgia; M15.9 Polyosteoarthritis, unspecified; R76.8 Other specified abnormal immunological findings in serum | CPT/HCPCS: 36415; 80076; 82565; 85651; 86140; 99214 ==

== ENCOUNTER 2024-03-30 14:39 | Outpatient (CLI) | payer MEDICARE, SELFPAY ==
[2024-03-30 14:49] LABS: Basophils # 0.1 10^3/uL (0.0-0.1); Basophils % 1.3 %; Eosinophils # 0.3 10^3/uL (0.0-0.8); Hematocrit 40.1 % (36-47); Lymphocytes % 30.4 %; Mean Corpuscular HGB Conc 33.4 g/dL (30-55); Mean Corpuscular Hemoglobin 29.8 pg (27-33); Mean Corpuscular Volume 89.3 fl (85-98); Mean Platelet Volume 8.7 fL (7.4-10.4); Monocytes # 0.7 10^3/uL (0.2-0.9); Monocytes % 11.1 %; Neutrophils # 3.52 10^3/uL (1.8-7.7); Neutrophils % 52.9 %; Nucleated Red Blood Cells % 0 %; Platelet Count 159 10^3/cmm (157-399); Red Blood Count 4.49 10^6/uL (3.85-5.65); Red Cell Distribution Width 13.2 % (12.1-15.1); White Blood Count 6.67 10^3/uL (3.29-11.43)
[2024-03-30 15:02] LABS: Erythrocyte Sedimentation Rate < 1 mm/hr (0-15)
[2024-03-30 15:13] LABS: Alanine Aminotransferase 25 U/L (0-33); Albumin Level 4.5 g/dL (3.5-5.2); Alkaline Phosphatase 75 U/L (35-105); Aspartate Amino Transferase 27 U/L (0-32); Globulin 2.3 g/dL (1.3-4.6); Glomerular Filtration Rate 102.7 mL/min (90-130); Total Bilirubin 0.3 mg/dL (0.15-1.2); Total Protein 6.8 g/dL (6.6-8.7)
== END 2024-03-30 14:40 | disposition home or self-care (01) ==
LOC: LAB 14:40
PROVIDERS: PCP Nurse Practitioner Family; Visit Provider Internal Medicine Rheumatology
DX: M06.041 Rheumatoid arthritis without rheumatoid factor, right hand (principal); M06.042 Rheumatoid arthritis without rheumatoid factor, left hand; Z79.899 Other long term (current) drug therapy
CPT/HCPCS: 36415; 80076; 82565; 85025; 85651; 86140

== ENCOUNTER 2024-05-22 09:44 | Outpatient (CLI) | payer MEDICARE, SELFPAY ==
[2024-05-22 10:06] LABS: Basophils # 0.1 10^3/uL (0.0-0.1); Basophils % 1.5 %; Eosinophils # 0.4 10^3/uL (0.0-0.8); Eosinophils % 6.4 %; Hematocrit 40.4 % (36-47); Lymphocytes # 1.4 10^3/uL (0.8-4.8); Lymphocytes % 26.5 %; Mean Corpuscular HGB Conc 32.7 g/dL (30-55); Mean Corpuscular Hemoglobin 29.9 pg (27-33); Mean Corpuscular Volume 91.6 fl (85-98); Mean Platelet Volume 8.6 fL (7.4-10.4); Monocytes # 0.5 10^3/uL (0.2-0.9); Monocytes % 8.8 %; Neutrophils # 3.07 10^3/uL (1.8-7.7); Neutrophils % 56.4 %; Nucleated Red Blood Cells % 0 %; Platelet Count 169 10^3/cmm (157-399); Red Blood Count 4.41 10^6/uL (3.85-5.65); Red Cell Distribution Width 13.2 % (12.1-15.1); White Blood Count 5.44 10^3/uL (3.29-11.43)
[2024-05-22 10:24] LABS: Erythrocyte Sedimentation Rate < 1 mm/hr (0-15)
[2024-05-22 10:29] LABS: Alanine Aminotransferase 30 U/L (0-33); Albumin Level 4.5 g/dL (3.5-5.2); Alkaline Phosphatase 98 U/L (35-105); Aspartate Amino Transferase 34 U/L (0-32); Globulin 2.3 g/dL (1.3-4.6); Glomerular Filtration Rate 73.4 mL/min (90-130); Total Bilirubin 0.3 mg/dL (0.15-1.2); Total Protein 6.8 g/dL (6.6-8.7)
== END 2024-05-22 09:45 | disposition home or self-care (01) ==
LOC: LAB 09:46
PROVIDERS: PCP Nurse Practitioner Family; Visit Provider Internal Medicine Rheumatology
DX: M06.041 Rheumatoid arthritis without rheumatoid factor, right hand (principal); M06.042 Rheumatoid arthritis without rheumatoid factor, left hand
CPT/HCPCS: 36415; 80076; 82565; 85025; 85651; 86140

== ENCOUNTER → 2024-06-11 12:34 | Outpatient (BNVA) | payer MEDICARE, SELFPAY | PROVIDERS: PCP Nurse Practitioner Family; Visit Provider Internal Medicine Rheumatology | DX: R76.8 Other specified abnormal immunological findings in serum (principal); M79.7 Fibromyalgia; M15.9 Polyosteoarthritis, unspecified; M06.041 Rheumatoid arthritis without rheumatoid factor, right hand; M06.042 Rheumatoid arthritis without rheumatoid factor, left hand | CPT/HCPCS: 20600; 99214; J1010 ==

== ENCOUNTER → 2024-08-24 14:13 | Outpatient (BNVA) | payer MEDICARE, SELFPAY | PROVIDERS: PCP Nurse Practitioner Family; Visit Provider Nurse Practitioner Family | DX: L98.8 Other specified disorders of the skin and subcutaneous tissue (principal); D22.5 Melanocytic nevi of trunk; L81.3 Cafe au lait spots; L81.4 Other melanin hyperpigmentation; L57.8 Other skin changes due to chronic exposure to nonionizing radiation; L90.5 Scar conditions and fibrosis of skin; L82.0 Inflamed seborrheic keratosis; R20.8 Other disturbances of skin sensation; L29.89 Other pruritus; L53.8 Other specified erythematous conditions; Z78.9 Other specified health status | CPT/HCPCS: 17110; 99213 ==

== ENCOUNTER → 2024-10-08 09:15 | Outpatient (BNVA) | payer MEDICARE, SELFPAY | PROVIDERS: PCP Nurse Practitioner Family; Visit Provider Internal Medicine Rheumatology | DX: R76.8 Other specified abnormal immunological findings in serum (principal); M79.7 Fibromyalgia; M15.9 Polyosteoarthritis, unspecified; M06.041 Rheumatoid arthritis without rheumatoid factor, right hand; M06.042 Rheumatoid arthritis without rheumatoid factor, left hand; Z79.899 Other long term (current) drug therapy | CPT/HCPCS: 36415; 80076; 82565; 85025; 85651; 86140; 86480; 86704; 86803; 87340; 99214 ==

== ENCOUNTER 2024-12-30 10:39 | Outpatient (CLI) | payer MEDICARE, SELFPAY ==
--- NOTE | 2024-12-30 10:43 | MM_ITS ---
WS: [id number] BILATERAL 3D TOMOSYNTHESIS DIGITAL SCREENING MAMMOGRAPHY WITH CAD CLINICAL INFORMATION: SCREENING HISTORY: Screening mammogram. No current complaints. COMPARISON: 2023 TECHNIQUE: Bilateral CC and MLO views. FINDINGS: Scattered fibroglandular densities bilaterally. No suspicious focal mass, asymmetry, calcifications, or architectural distortion. No evidence of malignancy. MM/MM scr BI tomosynthesis [id number] IMPRESSION: DENSITY: There are scattered areas of fibroglandular density. BI-RADS: 1 - Negative. FOLLOW UP: 1 Year Follow-up Recommend return to annual screening mammography.
== END 2024-12-30 10:40 | disposition home or self-care (01) ==
LOC: RAD 10:40
PROVIDERS: PCP Nurse Practitioner Family; Visit Provider Nurse Practitioner Family
DX: Z12.31 Encounter for screening mammogram for malignant neoplasm of breast (principal); R92.323 Mammographic fibroglandular density, bilateral breasts; R35.0 Frequency of micturition
CPT/HCPCS: 77063; 77067; 81000